=== PATIENT | male | born 1960 | race Caucasian/White ===

== ENCOUNTER 2018-11-03 10:03 | Inpatient (IN) | payer OTHER ==
[~2018-11-03] VITALS: Ht 177.8 cm; Wt 99.3 kg
[2018-11-03 10:09] VITALS: Ht 177.8 cm; Wt 99.3 kg
[2018-11-03 11:55] LABS: BASOPHIL % 0.2 % (0-2); PLATELET COUNT 194 x10^3mcL (130-400)
[2018-11-03 11:57] LABS: CALCIUM 9.4 mg/dL (8.5-10.1); CARBON DIOXIDE 33.5 mmol/L (21-32); CHLORIDE SERUM 103 mmol/L (98-107); CREATININE SERUM 0.9 mg/dL (0.7-1.3); GFR1 > 60 mL/min; GLUCOSE SERUM 362 mg/dL (74-106); POTASSIUM SERUM 4.8 mmol/L (3.5-5.1); SODIUM SERUM 141 mmol/L (136-145)
[2018-11-03 12:03] LABS: ALKALINE PHOSPHATASE 61 U/L (46-116); ALT/SGPT 35 U/L (16-63); AST/SGOT 30 U/L (15-37); BILIRUBIN TOTAL 0.39 mg/dL (0.20-1.00); TOTAL PROTEIN, SERUM 6.3 g/dL (6.4-8.2)
[2018-11-03 12:05] LABS: ALBUMIN 2.5 g/dL (3.4-5.0)
[2018-11-03 12:40] VITALS: BP 140/87
[2018-11-03 14:59] LABS: CHOLESTEROL/HDL RATIO 4.3
[2018-11-03 15:09] LABS: T3 TOTAL 1.34 ng/mL
[2018-11-03 15:26] VITALS: BP 153/95
[2018-11-03 15:26] LABS: FREE THYROXINE INDEX 3.4 ug/dL (1.4-4.5); T4(THYROXINE) 10.5 ug/dL (4.7-13.3)
[2018-11-03 16:03] LABS: microscopic required? YES; urine erythrocyte NEGATIVE (NEGATIVE)
[2018-11-03 16:28] LABS: AMPHETAMINE QUAL UR NONE DETECTED (See below)
[2018-11-03 18:30] VITALS: BP 126/88
[2018-11-03 20:57] VITALS: BP 135/74
[2018-11-04] MEDS ORDERED: RESTORIL15 MG (02:49)
[2018-11-04] MEDS ORDERED: TRAZODONE HCL1 POW (02:49)
[2018-11-04] MEDS ORDERED: DEPAKOTE500 MG (02:49)
[2018-11-04 05:55] VITALS: BP 141/81
[2018-11-04 06:17] LABS: PLATELET COUNT 210 x10^3mcL (130-400)
[2018-11-04 06:58] LABS: CALCIUM 9.2 mg/dL (8.5-10.1); CARBON DIOXIDE 31.6 mmol/L (21-32); CHLORIDE SERUM 100 mmol/L (98-107); CREATININE SERUM 0.9 mg/dL (0.7-1.3); GFR1 > 60 mL/min; GLUCOSE SERUM 353 mg/dL (74-106); POTASSIUM SERUM 5.5 mmol/L (3.5-5.1); SODIUM SERUM 136 mmol/L (136-145)
[2018-11-04 07:10] LABS: BASOPHIL % 0 % (0-2)
[2018-11-04 08:49] VITALS: BP 134/76
[2018-11-04 13:05] VITALS: BP 118/58
[2018-11-04 17:31] VITALS: BP 148/71
[2018-11-04 22:03] VITALS: BP 129/72
[2018-11-05 06:00] LABS: BASOPHIL % 0.2 % (0-2); PLATELET COUNT 210 x10^3mcL (130-400)
[2018-11-05 06:10] LABS: CALCIUM 8.7 mg/dL (8.5-10.1); CHLORIDE SERUM 100 mmol/L (98-107); CREATININE SERUM 0.7 mg/dL (0.7-1.3); GFR1 > 60 mL/min; GLUCOSE SERUM 362 mg/dL (74-106); POTASSIUM SERUM 4.6 mmol/L (3.5-5.1); SODIUM SERUM 137 mmol/L (136-145)
[2018-11-05 06:38] VITALS: BP 146/86
[2018-11-05 08:30] VITALS: BP 128/79
[2018-11-05 19:10] VITALS: BP 159/90
[2018-11-06 06:18] VITALS: BP 133/77
[2018-11-06 08:23] VITALS: BP 147/82
[2018-11-06 12:02] VITALS: BP 114/74
[2018-11-06 17:46] VITALS: BP 133/66
[2018-11-06 21:43] VITALS: BP 132/72
[2018-11-07 06:06] VITALS: BP 127/75
[2018-11-07 06:40] LABS: PLATELET COUNT 206 x10^3mcL (130-400)
[2018-11-07 06:42] LABS: BASOPHIL % 0 % (0-2)
[2018-11-07 07:17] LABS: CALCIUM 8.7 mg/dL (8.5-10.1); CARBON DIOXIDE 31.8 mmol/L (21-32); CHLORIDE SERUM 103 mmol/L (98-107); CREATININE SERUM 0.8 mg/dL (0.7-1.3); GFR1 > 60 mL/min; GLUCOSE SERUM 314 mg/dL (74-106); POTASSIUM SERUM 4.3 mmol/L (3.5-5.1); SODIUM SERUM 139 mmol/L (136-145)
[2018-11-07 07:31] VITALS: BP 150/90
[2018-11-07 11:08] VITALS: BP 150/90
[2018-11-07 11:47] VITALS: BP 128/78
[2018-11-07 13:08] VITALS: BP 128/78
== END 2018-11-07 21:56 | DRG 189 ==
LOC: ED 10:03 → DU 14:20 → EDBEDREQ 14:22 → DU 15:09
PROVIDERS: Emergency Medicine; ADMIT General Practice
DX: J96.02 Acute respiratory failure with hypercapnia (principal); N17.0 Acute kidney failure with tubular necrosis; E43 Unspecified severe protein-calorie malnutrition; J44.1 Chronic obstructive pulmonary disease with (acute) exacerbation; G72.81 Critical illness myopathy; R27.0 Ataxia, unspecified; E11.65 Type 2 diabetes mellitus with hyperglycemia; E87.5 Hyperkalemia; E78.5 Hyperlipidemia, unspecified; F20.9 Schizophrenia, unspecified; F17.210 Nicotine dependence, cigarettes, uncomplicated; Z68.31 Body mass index [BMI] 31.0-31.9, adult; Z87.820 Personal history of traumatic brain injury
CPT/HCPCS: 36600; 82962; 83880; 84439; 94150; 99406; J1200; J2060; J2310; J2920; J2930; J7620; Q0092